=== PATIENT | female | born 1980 | race Caucasian/White ===

== ENCOUNTER 2020-12-31 00:34 | Day surgery (SDC) | payer BC, OTHER, SELFPAY ==
[2020-12-31 06:08] VITALS: BP 129/81; PULSE 85; RESP 16; TEMP 36.4; O2SAT 100
[2020-12-31 06:10] VITALS: BMI 41.5
[2020-12-31] MEDS: LACTATED RINGERS 1,000 ML 30 ML IV CONT (06:25)
--- NOTE | 2020-12-31 07:07 | WPDHPUPDATE1 ---
History and Physical Update Update Date/Time: 12/31/20 07:07 History and Physical has been reviewed, including an updated exam of the patient. There are NO changes in the patient's condition. Risks, benefits, and alternatives have been discussed and questions answered. Patient agrees to proceed with procedure.
--- NOTE | 2020-12-31 07:07 | PM.HPGS ---
History of Present Illness History of Present Illness Consent: Risks, benefits, and alternatives have been discussed and questions answered. Patient agrees to proceed with procedure. Chief complaint: abnormal uterine bleeding Narrative: Ngoc Salcido is a 40 year old female status post endometrial ablation and 2019. 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 Most recently the patient's cycles have increased in flow and are very painful. Pelvic ultrasound reveals the endometrial lining to measure 10mm with a small amount of fluid in the cervical canal. It was recommended to proceed with D&C hysteroscopy. Risks of surgery including infection, bleeding, and perforation were reviewed. Inability to enter the endometrial cavity after ablation was also reviewed. Possible pathology was discussed. Patient voices understanding and agrees to proceed. Review of Systems Review of Systems: not repeated day of surgery; patient states no changes in status [facility] Past Medical History Medical History (Updated 12/31/20 @ 07:12 by Nat Bartlett MD) History of kidney stones (normal spontaneous vaginal delivery) x3 Status post hysteroscopy 2019 Surgical History Surgical History (Updated 12/31/20 @ 07:12 by Nat Bratlett MD) Status post hysteroscopic ablation of endometrium 2019 Meds Home Medications and Allergies Home Medications Medication Instructions Recorded Confirmed Type cetirizine [Zyrtec] 10 mg PO DAILY 12/31/20 12/31/20 History ju-vi-DL-vit G-qzwyf-brc-coQ10 1 cap PO DAILY 12/31/20 12/31/20 History [Daily Multivitamin] vitamin B complex [B 1 tablet PO DAILY 12/31/20 12/31/20 History Complex-Vitamin B12] Allergies Allergy/AdvReac Type Severity Reaction Status Date / Time amoxicillin Allergy Severe Hives Verified 12/31/20 06:22 latex Allergy Mild Rash Verified 12/31/20 06:22 Vital Signs Vital Signs - 24 hr 12/31/20 06:08 Temperature 97.6 F Pulse Rate 85 Respiratory Rate 16 Blood Pressure 129/81 Pulse Oximetry 100 Exam Const: General: healthy appearing and alert Orientation/consciousness: patient oriented x3 Resp: Effort & Inspection: normal respiratory effort Auscultation: clear to auscultation bilaterally Cardio: Rate: regular rate Rhythm: regular rhythm GI: GI Palp: Yes Soft to palpation, No Tenderness to palpation present (GI) and No Palpable mass present : External Female Exam: normal external appearance Speculum Exam - Vagina: normal appearance of the vagina and normal vaginal discharge Speculum Exam - Cervix: normal appearance of the cervix Bimanual exam- vagina & uterus: uterine size normal and consistency normal Bimanual Exam- Adnexa, other: normal adnexae and No adnexal tenderness Neuro: General: patient oriented x3 Assessment and Plan Assessment and plan (1) Menorrhagia: Code(s): N92.0 - Excessive and frequent menstruation with regular cycle Status: Acute Assessment and Plan: Plan is to proceed with D&C hysteroscopy (2) Dysmenorrhea: Code(s): N94.6 - Dysmenorrhea, unspecified Status: Acute
[2020-12-31] MEDS: LIDOCAINE HCL 1% PF 30 ML VIAL 50 ML INFILTRATE (07:40)
[2020-12-31 07:55] VITALS: BP 126/69; PULSE 73; RESP 12; O2SAT 99
--- NOTE | 2020-12-31 07:59 | W.PM.PROC2 ---
Procedure Note - Detailed Date of Procedure 12/31/20 Pre-op Diagnosis abnormal uterine bleeding Dysmenorrhea Post-op Diagnosis same Procedure Performed D&C hysteroscopy Surgeon Nat Bartlett MD Anesthesia MAC and local Findings Stenotic internal os; uterus sounds to 8cm; large majority of endometrium is scarred from prior ablation; small area at the fundus midline that is consistent with endometrial tissue and possible polyp Description of Procedure The patient was taken to the operating room and placed under anesthesia in the dorsal lithotomy position. She was prepped and draped in the usual sterile fashion. [place] speculum was placed in the vagina and cervix is grasped on the anterior lip with a tenaculum. The cervix is injected with 1% lidocaine in each quadrant. The uterus is attempted to be sounded but internal stenosis is noted. Os Finders are used and the is small dilator was used to open the internal canal. Cervix was then serially dilated with Hegar. The uterus sounds to 8cm. The diagnostic hysteroscope is placed with the stated findings. MyoSure device is opened and placed and the endometrial tissue at the fundus is excised. There are also some thickened areas in the cervical canal better excised. The MyoSure device is removed in the medium sharp curette used to sharply curette the endometrium. Minimal materials obtained consistent with the scarred appearance. All instruments are removed and the patient awakened from anesthesia. Sponge, needle, and instrument counts are correct per the OR staff. Estimated Blood Loss 5 Drains No Packing No Pathology yes (Endometrial shavings and curettings) Complications No immediate complications Condition stable Disposition PACU
[2020-12-31 08:25] VITALS: BP 121/69; PULSE 65; RESP 12
--- NOTE | 2021-01-01 10:32 | P.PNAN_ITS ---
Anes - Initial Pre Proc Eval Procedure: Operation Date: 12/31/20 07:30 Proposed Procedures p Hysteroscopy Dilation and Curettage - Nat Bartlett MD Date/Time: 01/01/21 10:32 Surgeon: Nat Bartlett MD Pre Op Diagnosis: abnormal uterine bleeding Patient Data Age: 40 Gender: F Height: 1.57 m Weight: 103.1 kg Last Vital Signs Temp 36.4 C 12/31/20 06:08 Pulse 65 12/31/20 08:25 Resp 12 12/31/20 08:25 BP 121/69 12/31/20 08:25 Pulse Ox 99 12/31/20 07:55 Allergies Allergy/AdvReac Type Severity Reaction Status Date / Time amoxicillin Allergy Severe Hives Verified 12/31/20 06:22 latex Allergy Mild Rash Verified 12/31/20 06:22 Home Medications Medication Instructions Recorded Confirmed Type cetirizine [Zyrtec] 10 mg PO DAILY 12/31/20 12/31/20 History se-yz-ML-vit W-efzpt-dne-coQ10 1 cap PO DAILY 12/31/20 12/31/20 History [Daily Multivitamin] vitamin B complex [B 1 tablet PO DAILY 12/31/20 12/31/20 History Complex-Vitamin B12] Patient hx anesthesia problems: none Family hx anesthesia problems: none Results Review: All pre-operative results and documents have been reviewed as part of the pre-operative evaluation. [facility] Past Medical History Medical History History of kidney stones (normal spontaneous vaginal delivery) x3 Status post hysteroscopy 2019 Surgical History Surgical History Status post hysteroscopic ablation of endometrium 2019 Anes - Eval Final PreProcedure Day of Procedure 01/01/21 10:32 Patient weight: morbidly obese Heart: regular rate and rhythm Lungs: clear to auscultation Airway: Mallampati scale class II Neurological: alert and oriented Last oral intake: >/= 8 hours ASA classification: III Emergent: no Anesthetic plan: proceed Anesthesia type and monitoring: general GIVS and standard monitoring Other findings: Late entry pt seen prior to leaving preop Results Review: All pre-operative results and documents have been reviewed as part of the pre-operative evaluation. Informed Consent: The patient's anesthetic plan and its attendant risks and benefits were discussed with the patient/family/POA. Questions were solicited and answers provided to the satisfaction of the patient/family/POA.
== END 2020-12-31 08:35 | disposition home or self-care (01) ==
PROVIDERS: Visit Provider Obstetrics & Gynecology Gynecology
PROC: 0U5B8ZZ Destruction of Endometrium, Via Natural or Artificial Opening Endoscopic (ICD-10-PCS; CPT 58563; principal; 2020-12-31 07:30)
DX: N93.9 Abnormal uterine and vaginal bleeding, unspecified (principal); N94.6 Dysmenorrhea, unspecified; N88.2 Stricture and stenosis of cervix uteri; N92.0 Excessive and frequent menstruation with regular cycle; E66.8 Other obesity; Z68.41 Body mass index [BMI] 40.0-44.9, adult
CPT/HCPCS: 58558; 88305; A9270; J0131; J1100; J2250; J2405; J2704; J3010; J7030; J7120

== ENCOUNTER 2023-10-12 00:53 | Day surgery (SDC) | payer BC, OTHER, SELFPAY ==
--- NOTE | 2023-10-07 15:23 | PC.NURSE ---
Report to the Outpatient Waiting Room, entrance under the green pavilion located off [facility], at time 1015 on date 10/12/23. Planned Procedure Time: 1215. Time changes happen often and if your time is changed the preop area will call you the afternoon before. - You and your visitor will be asked to self-screen and do not enter if you have any COVID symptoms. - A mask is optional within the hospital at this time. Patients may have clear liquids (water, carbonated beverages, clear teas, apple juice) until 3 hours prior to surgery with a maximum of 20 ounces. 0915 - No food from midnight until time of surgery - Infants may have breast milk until 4 hours before surgery, formula 6 hours prior to surgery. - Children will be allowed to drink immediately following surgery. If applicable, please bring a bottle or sippy cup to assist with drinking. Juice, water, soda, and popsicles are readily available. For infants on formula, please bring formula the day of surgery. Pacifiers are allowed. Take the following medications with a SIP of water the morning of surgery: BUPRROPION DO NOT STOP ANY OF YOUR OTHER PRESCRIPTION MEDICATIONS PRIOR TO SURGERY ?EXCEPT THE FOLLOWING Medications to discontinue per physician MULTIVITAMINS & SUPPLEMENTS- LAST DAY TO TAKE IS 10/09/23, HOLD ZYRTE MORNING OF SURGERY Please no make-up, nail sudanese, hairspray, perfume, deodorant, or body powder the day of surgery. No jewelry (including any body piercings) or valuables the day of surgery, leave them at home. Please take a shower or bath the night before, or the morning of, surgery with an antibacterial soap. Wear comfortable, loose fitting clothing. Children are encouraged to wear pajamas. - Jewelry must be removed prior to entering the operating room. Rings and piercings that are not removed may be cut off. - The hospital will not accept responsibility for valuables. - Please leave all valuables, including medications, at home the day of surgery. If you are going home after surgery, a licensed shuttle van driver must drive you home. - NO public transportation without another adult if you receive anesthesia. - We recommend that an adult stay with you for 24 hours following discharge. - We also recommend that you do not drive, make important decision, drink alcoholic beverages, or take any drugs that were not prescribed by your health care provider for at least 24 hours after your discharge time. For Pediatric surgeries, we recommend two adults accompany the child home. Follow any additional instructions given to you from your surgeon. If you or anyone in your household have experienced Covid symptoms in the past week, please notify your surgeon or the nurse liaison at the phone number below for possible testing. Telephone instructions given to Patient- Ngoc Salcido and asked if any additional questions and then verbalized understanding. Patient advised to call surgeon office or pre surgery nurse liaison [phone] if any additional questions.
[2023-10-07 15:29] VITALS: BMI 40.8
--- NOTE | 2023-10-12 08:00 | WPDHPUPDATE1 ---
History and Physical Update Update Date/Time: 10/12/23 08:00 History and Physical has been reviewed, including an updated exam of the patient. There are NO changes in the patient's condition. Risks, benefits, and alternatives have been discussed and questions answered. Patient agrees to proceed with procedure.
--- NOTE | 2023-10-12 08:01 | PM.HPGS ---
History of Present Illness History of Present Illness Consent: Risks, benefits, and alternatives have been discussed and questions answered. Patient agrees to proceed with procedure. Chief complaint: Abnormal Uterine Bleeding Narrative: Ngoc Salcido is a 43 year old female with heavy cycles. Patient is status post previous endometrial ablation in 2019. Pelvic ultrasound does show small fibroids. Per ultrasound they appeared to be intramural. It was recommended to undergo D&C hysteroscopy for further evaluation. Risks of infection, bleeding, perforation, and inability to enter the cavity are reviewed. Possible pathology was also discussed. Patient voices understanding and agrees to proceed. Review of Systems Review of Systems: not repeated day of surgery; patient states no changes in status [facility] Past Medical History Medical History History of kidney stones (normal spontaneous vaginal delivery) x3 Status post hysteroscopy 2019 Surgical History Surgical History Status post hysteroscopic ablation of endometrium 2019 Social History Social History Smoking status: Never smoker Substance use type: marijuana Other substance usage details: gummy occasionally to help her sleep Spiritual care concerns: No Meds Home Medications and Allergies Home Medications Medication Instructions Recorded Confirmed Type cetirizine 10 mg tablet (Zyrtec) 10 mg PO DAILY PRN allergies 12/31/20 10/07/23 History yguiraad-uss-LJ 200 mcg-vit K 100 1 cap PO DAILY 12/31/20 10/07/23 History mcg-lycop 500 fcn-jyhlau-H31 capsule (Daily Multivitamin) bupropion HCl 300 mg 24 hr tablet, 300 mg PO DAILY 10/07/23 10/07/23 History extended release misoprostol 200 mcg tablet 1,000 mcg PO HS 10/07/23 10/07/23 History naltrexone 50 mg tablet 50 mg PO QPM 10/07/23 10/07/23 History Allergies Allergy/AdvReac Type Severity Reaction Status Date / Time amoxicillin Allergy Severe Hives Verified 10/07/23 15:09 latex Allergy Mild Rash Verified 10/07/23 15:09 Exam Const: General: healthy appearing and alert Orientation/consciousness: patient oriented x3 Resp: Effort & Inspection: normal respiratory effort : External Female Exam: normal external appearance Speculum Exam - Vagina: normal appearance of the vagina and normal vaginal discharge Speculum Exam - Cervix: normal appearance of the cervix Bimanual exam- vagina & uterus: uterine size normal and consistency normal Bimanual Exam- Adnexa, other: normal adnexae and No adnexal tenderness Neuro: General: patient oriented x3 Assessment and Plan Assessment and plan (1) Menorrhagia: Code(s): N92.0 - Excessive and frequent menstruation with regular cycle Status: Acute Assessment and Plan: Plan to proceed with D&C hysteroscopy
[2023-10-12 10:29] VITALS: BP 131/99; PULSE 81; RESP 18; TEMP 36.9; O2SAT 100
[2023-10-12] MEDS: ACETAMINOPHEN 500 MG TABLET 1000 MG PO (10:40)
[2023-10-12] MEDS: LACTATED RINGERS 1,000 ML 30 ML IV CONT (10:42)
--- NOTE | 2023-10-12 10:48 | WPDANESEPPF ---
Anes - Initial Pre Proc Eval Procedure: Operation Date: 10/12/23 12:15 Proposed Procedures p Hysteroscopy Dilation and Curettage - Nat Bartlett MD Date/Time: 10/12/23 10:48 Surgeon: Nat Bartlett MD Pre Op Diagnosis: Abnormal Uterine Bleeding Patient Data Age: 43 Gender: F Height: 1.57 m Weight: 100.7 kg Last Vital Signs Temp 98.5 F 10/12/23 10:29 Pulse 81 10/12/23 10:29 Resp 18 10/12/23 10:29 BP 131/99 H 10/12/23 10:29 Pulse Ox 100 10/12/23 10:29 O2 Del Method Room Air 10/12/23 10:29 Allergies Allergy/AdvReac Type Severity Reaction Status Date / Time amoxicillin Allergy Severe Hives Verified 10/12/23 10:32 latex Allergy Mild Rash Verified 10/12/23 10:32 Home Medications Medication Instructions Recorded Confirmed Type cetirizine 10 mg tablet (Zyrtec) 10 mg PO DAILY PRN allergies 12/31/20 10/12/23 History seridcuq-aci-GT 200 mcg-vit K 100 1 cap PO DAILY 12/31/20 10/12/23 History mcg-lycop 500 fcf-neyjpf-U83 capsule (Daily Multivitamin) bupropion HCl 300 mg 24 hr tablet, 300 mg PO DAILY 10/07/23 10/12/23 History extended release misoprostol 200 mcg tablet 1,000 mcg PO HS 10/07/23 10/12/23 History naltrexone 50 mg tablet 50 mg PO QPM 10/07/23 10/12/23 History Patient hx anesthesia problems: none Family hx anesthesia problems: none Results Review: All pre-operative results and documents have been reviewed as part of the pre-operative evaluation. [facility] Past Medical History Medical History History of kidney stones (normal spontaneous vaginal delivery) x3 Status post hysteroscopy 2019 Surgical History Surgical History Status post hysteroscopic ablation of endometrium 2019 Social History Social History Smoking status: Never smoker Substance use type: marijuana Other substance usage details: gummy occasionally to help her sleep Spiritual care concerns: No Anes - Eval Final PreProcedure Day of Procedure 10/12/23 10:48 Patient weight: obese Heart: regular rate and rhythm Lungs: clear to auscultation Airway: Mallampati scale class II Neurological: alert and oriented Last oral intake: >/= 8 hours ASA classification: II Emergent: no Anesthetic plan: proceed Anesthesia type and monitoring: general GIVS and standard monitoring Results Review: All pre-operative results and documents have been reviewed as part of the pre-operative evaluation. Obesity, PCOS. Pt active w running 3 x weekly, no cp or sob. Informed Consent: The patient's anesthetic plan and its attendant risks and benefits were discussed with the patient/family/POA. Questions were solicited and answers provided to the satisfaction of the patient/family/POA.
[2023-10-12] MEDS: KETOROLAC 15 MG/ML VIAL (*BKC) IV PUSH ×2 (11:36→12:10)
--- NOTE | 2023-10-12 12:00 | P.OP_ITS ---
Procedure Note - Detailed Date of Procedure 10/12/23 Pre-op Diagnosis Abnormal Uterine Bleeding Post-op Diagnosis Same Procedure Performed D&C hysteroscopy Surgeon Nat Bartlett MD Anesthesia MAC Findings uterus sounds to 8cm and appears grossly status post ablation there is a small area anteriorly consistent with shedding endometrium Description of Procedure The the patient is taken to the operating room and placed under anesthesia in the dorsal lithotomy position. She was prepped and draped in the usual sterile fashion. [place] speculum was placed in the vagina and the cervix is grasped on the anterior lip with a tenaculum. The uterus is sounded to 8cm. The cervix is stenotic so the small Hegar dilators used to dilate to a 5. The diagnostic hysteroscope was then placed with the above-stated findings. With no discrete lesions, the hysteroscope was removed. The sharp OO curette was used to curette the endometrium until a good uterine cry was noted in all areas. All instruments are removed. Sponge, needle, and instrument counts are correct per the OR staff. Patient was awakened from anesthesia and taken to recovery in stable condition. Estimated Blood Loss 5 Drains No Packing No Pathology Yes ( Endometrial curettings) Complications No immediate complications Condition Stable Disposition PACU
[2023-10-12 12:02] VITALS: BP 116/66; PULSE 79; RESP 16; O2SAT 97
[2023-10-12 12:30] VITALS: BP 128/67; PULSE 72
== END 2023-10-12 12:53 | disposition home or self-care (01) ==
PROVIDERS: Visit Provider Obstetrics & Gynecology Gynecology
PROC: 0U5B8ZZ Destruction of Endometrium, Via Natural or Artificial Opening Endoscopic (ICD-10-PCS; CPT 58563; principal; 2023-10-12 12:15)
DX: N92.0 Excessive and frequent menstruation with regular cycle (principal); F12.90 Cannabis use, unspecified, uncomplicated; E66.9 Obesity, unspecified; Z68.41 Body mass index [BMI] 40.0-44.9, adult
CPT/HCPCS: 58558; 88305; A9270; J1100; J1885; J2250; J2405; J2704; J3010; J7120